=== PATIENT | male | born 2000 | race Caucasian/White ===

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

== ENCOUNTER 2020-06-06 15:58 | Emergency (ER) | payer BC ==
[~2020-06-06] VITALS: Ht 193 cm; Wt 86.4 kg
[2020-06-06] MEDS ORDERED: CEPHALEXIN500 M1 PO (16:13)
[2020-06-06 16:55] VITALS: BP 127/68
== END 2020-06-06 16:55 | disposition home or self-care (01) | DRG 605 ==
LOC: ED 15:58
PROC: 0HQFXZZ Repair Right Hand Skin, External Approach (ICD-10-PCS; principal; 2020-06-06)
DX: S61.212A Laceration without foreign body of right middle finger without damage to nail, initial encounter (principal); W26.8XXA Contact with other sharp object(s), not elsewhere classified, initial encounter; Y93.H2 Activity, gardening and landscaping; Y92.007 Garden or yard of unspecified non-institutional (private) residence as the place of occurrence of the external cause